=== PATIENT | male | born 1945 | race Caucasian/White ===

== ENCOUNTER → 2018-02-03 | Outpatient (CLI) | payer OTHER ==
[~2018-02-03] MED LIST: AMLO5TAB2 PO; ASPI1CHW4 CHEW; COEN400C PO; COMMODE 3-IN-11 MIS; GLUC500T4 PO; HYDR-3583 PO; LOSA50TA PO; SIMV40TA PO; WALKER WHEELS/F1 MIS; Z.0.NO CURRENT MEDS
== END ==
LOC: CPRE 11:17
PROVIDERS: ATTEND Orthopaedic Surgery Orthopaedic Trauma
DX: M16.11 Unilateral primary osteoarthritis, right hip (principal)

== ENCOUNTER 2018-02-09 05:38 | Inpatient (IN) | payer OTHER, MEDICARE ==
[~2018-02-09] VITALS: Ht 188 cm; Wt 101.0 kg
[~2018-02-09 05:38] MED LIST changes: -ASPI1CHW4 CHEW; -COMMODE 3-IN-11 MIS; -HYDR-3583 PO; -WALKER WHEELS/F1 MIS; -Z.0.NO CURRENT MEDS
[2018-02-09] MEDS ORDERED: ACETAMINOPHEN 1000 MG/100 ML 0 ML IV ONE (05:57)
[2018-02-09] MEDS ORDERED: POVIDONE IODINE 5% (ANTISEPSIS KIT) 4 APPLICATIONS EACH NARE PRN (06:00)
[2018-02-09] MEDS ORDERED: SODIUM CHLORID 0.9% 500 ML IV PRN (06:00)
[2018-02-09] MEDS ORDERED: CHLORHEXIDINE GLUCONATE 4% SOLN 120 ML BTL TOPICAL SCH (06:00)
[2018-02-09] MEDS ORDERED: VANCOMYCIN 1 GM/200 ML PREMIX IV SCH (06:00)
[2018-02-09] MEDS ORDERED: CHLORHEXIDINE GLUCONATE 2 % 1 PACK (2 CLOTHS) TOPICAL PRN (06:00)
[2018-02-09] MEDS ORDERED: BUPIVACAINE-EPI PF 0.25% INJ 20 ML, BUPIVACAINE LIPOSO PF 1.3% INJ 20 ML in SODIUM CHLO... P-ARTICULR SCH (06:00)
[2018-02-09] MEDS ORDERED: ceFAZolin 2 GM PREMIX 50 ML IV SCH (06:00)
[2018-02-09] MEDS ORDERED: TRANEXAMIC ACID IV SCH (06:00)
[2018-02-09] MEDS ORDERED: INSULIN HUMAN REGULAR 1,000 UNITS/10 ML VIAL SQ PRN (06:00)
[2018-02-09] MEDS ORDERED: CELECOXIB 200 MG CAP PO ONE (06:00)
[2018-02-09] MEDS ORDERED: GABAPENTIN 300 MG CAP PO ONE (06:00)
[2018-02-09] MEDS ORDERED: ACETAMINOPHEN 1000 MG/100 ML 100 ML IV ONE (06:00)
[2018-02-09] MEDS ORDERED: SODIUM CHLORIDE 0.9% IV SCH (06:00)
[2018-02-09] MEDS ORDERED: LACTATED RINGER'S 1000 ML IV PRN (06:00)
[2018-02-09] MEDS ORDERED: ONDANSETRON HCL 4 MG/2 ML VIAL IV PUSH ONE (06:00)
[2018-02-09] MEDS ORDERED: DEXAMETHASONE SOD PHOS 20 MG/5 ML VIAL IV PUSH ONE (06:00)
[2018-02-09] MEDS ORDERED: FAMOTIDINE 20 MG/2 ML VIAL IV PUSH ONE (06:00)
[2018-02-09] MEDS ORDERED: METOPROLOL TARTRATE 25 MG TAB PO PRN (06:00)
[2018-02-09] MEDS ORDERED: GENTAMICIN SULFATE 80 MG/2 ML VIAL ONE (06:17)
[2018-02-09] MEDS ORDERED: HYDR-3583 PO (07:46)
[2018-02-09] MEDS ORDERED: ASPI1CHW4 CHEW (07:46)
--- NOTE | 2018-02-09 08:57 | PD.OP ---
cc: Justin Chen MD Operative Report Date of Surgery: February 09, 2018 Preoperative Diagnosis: Severe right hip osteoarthritis Postoperative Diagnosis: Procedure: Right total hip arthroplasty by anterior approach Anesthesia: General Surgeon: Justin Chen Leather Staker(s): HERNANDEZ Montero PA-C The surgical procedure was assisted by my physician assistant brand manager. My P.A. presence was necessary throughout this case for the manipulation and positioning of the surgical extremity. My P.A. was assisting me throughout the duration of this procedure. The skill set of a physician assistant brand manager was medically necessary to complete this procedure. During the surgical case the operating room surgical technologist was working at the back table and the physician assistant brand manager was directly assisting me. Operation and Findings: PLAN OF ACTIVITY Weight bear as tolerated. IMPLANTS USED OsComp Systemsuy Corail size 15 collared stem with a size [54] Spicewood Gription cup, [54/ 36] Altrx poly liner, and a [36 +5] ceramic Biolox ceramic head. DETAILS OF PROCEDURE: This patient has a long history of hip pain. Patient was found to have severe osteoarthritis. The patient had radiographic evidence of joint space narrowing with [id number] arthritis and osteophytes around the acetabulum as well as the femoral head. There was also some cystic changes. The patient failed conservative treatment with pain medications, anti-inflammatories, physical therapy, assistive devices including a cane, as well as therapeutic injection of the hip. Patient's hip arthritis was limiting his ability to ambulate and perform activities of daily living. The patient wished to proceed with surgery and informed consent was obtained. Operative site was marked. I discussed both posterior approach and anterior approach with the patient and decision was made for anterior approach. Patient was brought to OR and placed on OR table. IV sedation and general anesthesia was administered by anesthesiologist. Patient positioned on a Jade table and was given IV antibiotics. Time-out procedure was performed. The hip and thigh were prepped with alcohol followed by Hibiclens. The thigh was draped in the usual sterile fashion. Clean Air Suite was used for this procedure. The procedure began with a 5-inch incision over the anterolateral thigh. Subcutaneous tissue was dissected with Bovie. The fascia over the tensa fasciae latae was incised. Care was taken to avoid injury to the lateral femoral cutaneous nerve. The tensor muscle was retracted laterally. Sartorius was retracted medially. Retractors were now placed. The reflected head of the rectus is now elevated. A capsulotomy was performed over the anterior head capsule. Sutures were placed to help retract the capsule. At this point the femoral head and neck were identified. With soft tissue protected, oscillating saw was used to make a cut through the femoral neck, the femoral head was now removed. At this point attention was turned to preparation of the acetabulum. The labrum was excised. The acetabulum was sequentially reamed up to size [54]. A Spicewood cup was now placed. Fluoroscopy was used to aid in identification of appropriate version. Cup was fully impacted and found to have excellent fit. Hole eliminator was now placed. The liner was now impacted into the cup. At this point the hip was externally rotated. A hook was placed around the proximal femur. The capsule was released off the lateral and medial femur. The hip was now extended and adducted. Retractors were placed around the proximal femur to allow for exposure. A box osteotome was used to remove the lateral cortex of the femoral neck. A broach was used to help lateralize the prosthesis. Canal finder was used to create a path down the canal. Next, the canal was sequentially broached up to size [15]. This was found to be an excellent fit. Calcar planer was placed. A standard head was placed, and the hip was reduced. The hip was found to have excellent stability with good range of motion. The leg lengths were measured under fluoroscopy and found to be equal compared to preoperatively. Trial broach was removed. The Corail stem was opened. Stem was fully impacted into the proximal femur in appropriate version. The femoral head was placed. The hip was again reduced. Fluoroscopy confirmed excellent alignment of prosthesis. The wound was thoroughly irrigated and capsule was closed with #1 Vicryl. The fascia over the tensor fasciae muscle was closed with #1 Vicryl, subcutaneous tissue was closed with 3-0 Vicryl and the skin was closed with julio and Dermabond skin closure. The capsule layers, muscle, and subcutaneous tissue were injected with a mixture of saline and bupivicaine. Dressings were applied. The patient was transferred to Recovery Room in stable condition. Justin Chen MD February 09, 2018 08:57
[2018-02-09] MEDS: LOSARTAN 50 MG TAB PO SCH (09:00)
[2018-02-09] MEDS ORDERED: NALOXONE HCL 0.4 MG/ML AMP IV PUSH PRN (09:00)
[2018-02-09] MEDS ORDERED: Post-op Orders (for Pharmacy) XX ONE (09:00)
[2018-02-09] MEDS ORDERED: ONDANSETRON HCL 4 MG/2 ML VIAL IVP PRN (09:00)
[2018-02-09] MEDS ORDERED: MORPHINE SULFATE 4 MG/ML INJ IV PUSH PRN (09:00)
[2018-02-09] MEDS: LACTATED RINGER'S 1000 ML INJ 1,000 ML IV SCH ×2 (09:25→21:30)
[2018-02-09] MEDS ORDERED: DO NOT ADM ANY ANTICOAGULANT DRUGS PRN (09:25)
[2018-02-09] MEDS ORDERED: MIDAZOLAM HCL 2 MG/2 ML VIAL ONE (09:30)
[2018-02-09] MEDS: amLODIPine BESYLATE 5 MG TAB PO SCH (09:56)
[2018-02-09] MEDS ORDERED: TRANEXAMIC ACID INJ 1,000 MG in SODIUM CHLORIDE 0.9% INJ 100 ML IV SCH (10:00)
--- NOTE | 2018-02-09 10:14 | RADRPT ---
EXAM DATE/TIME: 02/09/2018 10:45 [facility] COMPARISON: No previous studies available for comparison. INDICATIONS : Post op, right hip replacement. MEDICAL HISTORY : None. SURGICAL HISTORY : None. ENCOUNTER: Initial ACUITY: 1 day PAIN SCORE: 0/10 LOCATION: Right hip FINDINGS: AP and crosstable lateral views of the right hip demonstrate right hip arthroplasty in place. Hardwar e is well-positioned with anatomic alignment. There is no acute fracture. Degenerative changes are no arben in the left hip. CONCLUSION: 1. Status post right hip arthroplasty. Arthroplasty components are well positioned without fracture. Buster Mcmahan MD on February 09, 2018 at 10:11 Board Certified Radiologist. This report was verified electronically.
[2018-02-09] MEDS ORDERED: KETOROLAC TROMETHAMINE 30 MG/ML (IVP) VIAL IV PUSH SCH (10:30)
[2018-02-09] MEDS: ASPIRIN 81 MG CHEW TAB CHEW SCH ×2 (10:37→22:01)
[2018-02-09] MEDS: ceFAZolin 2 GM PREMIX 50 ML IV SCH ×2 (12:06→18:45)
[2018-02-09 13:15] VITALS: BP 132/75; PULSE 95; RESP 18; TEMP 97.8; O2SAT 94
--- NOTE | 2018-02-09 13:20 | RADRPT ---
EXAM DATE/TIME: 02/09/2018 07:19 [facility] COMPARISON: No previous studies available for comparison. INDICATIONS : Right total hip replacement. MEDICAL HISTORY : None. SURGICAL HISTORY : None. ENCOUNTER: Initial ACUITY: 1 day PAIN SCORE: Non-responsive. LOCATION: Right Hip FINDINGS: 2 views recorded digitally in the operating room using C-arm during placement of total hip arthroplas ty. CONCLUSION: Intraoperative images. Eric Bernard MD on February 09, 2018 at 13:17 Board Certified Radiologist. This report was verified electronically.
[2018-02-09] MEDS ORDERED: ePHEDrine/NS 25 MG/5 ML SYRINGE IV ONE (13:43)
[2018-02-09] MEDS ORDERED: LIDOCAINE HCL 1% PF 5 ML SYRINGE OTHER ONE (13:43)
[2018-02-09] MEDS ORDERED: LACTATED RINGER'S 1000 ML INJ 1,000 ML IV ONE (13:43)
[2018-02-09] MEDS ORDERED: ROCURONIUM INJ 50 MG/5 ML SYRINGE IV PUSH ONE (13:43)
[2018-02-09] MEDS ORDERED: PHENYLEPH/NS 1000 MCG/10 ML SYR IV ONE (13:43)
[2018-02-09] MEDS ORDERED: PROPOFOL 200 MG/20 ML AMP IV ONE (13:43)
[2018-02-09] MEDS ORDERED: NEOSTIGMINE 5 MG/5 ML SYRINGE IV PUSH ONE (13:43)
[2018-02-09] MEDS ORDERED: GLYCOPYRROLATE 1 MG/5 ML SYRINGE IV PUSH ONE (13:43)
[2018-02-09] MEDS: ACETAMINOPHEN/HYDROcodone 325 MG/7.5 MG TAB PO PRN ×2 (14:20→18:05)
[2018-02-09] MEDS: ACETAMINOPHEN 1000 MG/100 ML 100 ML IV SCH (18:08)
[2018-02-09] MEDS: VANCOMYCIN INJ 1,000 MG in SODIUM CHLOR 0.9% 250 ML INJ 250 ML IV SCH (19:14)
[2018-02-09 20:05] VITALS: BP 131/63; PULSE 67; RESP 16; TEMP 99; O2SAT 94
[2018-02-09] MEDS: PRAVASTATIN SOD 80 MG TAB PO SCH (21:00)
[2018-02-09] MEDS: CELECOXIB 200 MG CAP PO SCH (22:02)
[2018-02-10] MEDS: ceFAZolin 2 GM PREMIX 50 ML IV SCH
[2018-02-10 00:15] VITALS: BP 160/79; PULSE 74; RESP 17; TEMP 97.4; O2SAT 96
[2018-02-10] MEDS: ACETAMINOPHEN/HYDROcodone 325 MG/10 MG TAB PO PRN ×2 (01:35→21:47)
[2018-02-10 04:01] LABS: HEMOGLOBIN 11.5 GM/DL (13.0-17.0)
[2018-02-10 04:40] VITALS: BP 147/71; PULSE 61; RESP 17; TEMP 98.3; O2SAT 97
[2018-02-10] MEDS: ACETAMINOPHEN 1000 MG/100 ML 100 ML IV SCH ×2 (06:00→18:00)
[2018-02-10] MEDS ORDERED: WALKER WHEELS/F1 MIS (06:20)
--- NOTE | 2018-02-10 07:01 | PD.ORT.PN ---
Subjective Subjective Remarks Doing well status post right total hip arthroplasty POD 1 Objective Vitals Vital Signs Date Time Temp Pulse Resp B/P (MAP) Pulse Ox O2 Delivery O2 Flow Rate FiO2 02/10/18 00:15 97.4 74 17 160/79 (106) 96 02/09/18 20:05 99.0 67 16 131/63 (85) 94 02/09/18 13:15 97.8 95 18 132/75 (94) 94 02/09/18 13:00 93 15 129/71 (90) 94 Room Air 02/09/18 12:00 92 15 133/63 (86) 94 Room Air 02/09/18 11:00 88 16 137/68 (91) 94 Room Air 02/09/18 10:30 97.5 84 16 130/72 (91) 93 Room Air 02/09/18 10:15 77 16 121/65 (83) 98 Nasal Cannula 2 02/09/18 10:00 65 16 122/64 (83) 95 Nasal Cannula 2 02/09/18 09:45 71 16 123/60 (81) 95 Nasal Cannula 3 02/09/18 09:30 80 18 128/61 (83) 94 Nasal Cannula 3 02/09/18 09:20 98.7 72 20 126/64 (84) 94 Nasal Cannula 3 I/O 02/09/18 02/09/18 02/09/18 02/10/18 02/10/18 02/10/18 07:00 15:00 23:00 07:00 15:00 23:00 Intake Total 1300 ml 150 ml Output Total 150 ml Balance 1150 ml 150 ml Intake IV Total 150 ml Other 1300 ml Output Estimated Blood Loss 150 ml Result Diagram: 02/10/18 0333 Imaging Last 24 hours Impressions Hip and Pelvis X-Ray 02/09/18 0852 Signed Impressions: Service Date/Time: February 10:45 - CONCLUSION: 1. Status post right hip arthroplasty. Arthroplasty components are well positioned without fracture. Buster Mcmahan MD Objective Remarks Right lower extremity: Clean dry dressings intact with a few pinpoint drops of drainage. He has mild swelling. He has no pain with knee or ankle range of motion. Distally his neurovascular intact with active dorsiflexion and plantarflexion of foot. He has good capillary refills and distal pulses. He is able stand and bear full weight. Assessment & Plan Assessment and Plan Right total hip arthroplasty POD 1 Weightbearing as tolerated right lower extremity with physical therapy twice daily Patient's bedroom is up a flight of stairs. Work with physical therapy for gait training and also climbing stairs. Maintain dressing Incentive spirometry Lovenox Plan for discharge tomorrow Case management for DME for walker Home health care with 's choice Follow-up with Dr. Grimes or PA in 2 weeks Elier Arenas Jr. February 10, 2018 07:01
[2018-02-10 08:00] VITALS: BP 173/77; PULSE 65; RESP 16; TEMP 97.9; O2SAT 97
[2018-02-10] MEDS: VANCOMYCIN INJ 1,000 MG in SODIUM CHLOR 0.9% 250 ML INJ 250 ML IV SCH (08:00)
[2018-02-10] MEDS: LOSARTAN 50 MG TAB PO SCH (08:26)
[2018-02-10] MEDS: CELECOXIB 200 MG CAP PO SCH ×2 (08:26→21:21)
[2018-02-10] MEDS: amLODIPine BESYLATE 5 MG TAB PO SCH (08:26)
[2018-02-10] MEDS: ASPIRIN 81 MG CHEW TAB CHEW SCH ×2 (08:27→21:20)
[2018-02-10] MEDS: LACTATED RINGER'S 1000 ML INJ 1,000 ML IV SCH ×2 (10:00→21:21)
[2018-02-10] MEDS: ACETAMINOPHEN/HYDROcodone 325 MG/7.5 MG TAB PO PRN (10:10)
[2018-02-10 12:00] VITALS: BP 178/63; PULSE 81; RESP 16; TEMP 97.9; O2SAT 97
--- NOTE | 2018-02-10 15:53 | HHI.FF ---
Face to Face Verification Diagnosis: (1) Status post right hip replacement Physical Therapy Gait training Hip: Total hip, Protocol: Right, Progress to weight bearing Nursing Dressing Changes: Do not change dressing (x 6 days), Daily dressing change ( beginning on POD 7 with primapore. do not remove clear mesh on incision) I have seen patient Berry Li on 02/10/18. My clinical findings support the need for the requested home health care services because: Ltd mobility - disease progression I certify that my clinical findings support that this patient is homebound because: Post-op weakness Sebastian Ryan/Field Insurance Sales Manager JONH February 10, 2018 15:53
[2018-02-10 16:00] VITALS: BP 145/67; PULSE 82; RESP 16; TEMP 98; O2SAT 98
[2018-02-10 20:00] VITALS: BP 156/76; PULSE 79; RESP 20; TEMP 98.3; O2SAT 96
[2018-02-10] MEDS: PRAVASTATIN SOD 80 MG TAB PO SCH (21:00)
[2018-02-10] MEDS: DOCUSATE SODIUM 100 MG CAP PO SCH (21:21)
[2018-02-11] VITALS: BP_SYST 107; BP_SYST 154; BP_DIAS 58; BP_DIAS 67; PULSE 78; PULSE 87; RESP 18; RESP 20; TEMP 97.5; TEMP 97.6; O2SAT 93; O2SAT 98
[2018-02-11] MEDS: ACETAMINOPHEN/HYDROcodone 325 MG/10 MG TAB PO PRN ×2 (06:15→09:29)
[2018-02-11] MEDS: ACETAMINOPHEN 1000 MG/100 ML 100 ML IV SCH (06:15)
[2018-02-11 08:00] VITALS: BP 150/76; PULSE 86; RESP 16; TEMP 98.6; O2SAT 94
--- NOTE | 2018-02-11 09:15 | PD.ORT.PN ---
Subjective Subjective Remarks Doing well status post right total hip arthroplasty POD 2 Objective Vitals Vital Signs Date Time Temp Pulse Resp B/P (MAP) Pulse Ox O2 Delivery O2 Flow Rate FiO2 02/11/18 00:00 97.5 87 20 154/67 (96) 93 02/10/18 20:00 98.3 79 20 156/76 (102) 96 02/10/18 18:46 17 02/10/18 16:00 98.0 82 16 145/67 (93) 98 02/10/18 12:00 97.9 81 16 178/63 (101) 97 02/10/18 11:10 17 I/O 02/10/18 02/10/18 02/10/18 02/11/18 02/11/18 02/11/18 07:00 15:00 23:00 07:00 15:00 23:00 Intake Total 480 ml 700 ml 240 ml Output Total 400 ml Balance 480 ml 700 ml -160 ml Intake Oral 480 ml 700 ml 240 ml Output Urine Total 400 ml # Voids 3 4 1 # Bowel Movements 0 0 Result Diagram: 02/10/18 0333 Imaging Last 24 hours Impressions Hip and Pelvis X-Ray 02/09/18 0852 Signed Impressions: Service Date/Time: February 10:45 - CONCLUSION: 1. Status post right hip arthroplasty. Arthroplasty components are well positioned without fracture. Buster Mcmahan MD Objective Remarks Right lower extremity: Clean dry dressings intact with a few pinpoint drops of drainage. He has mild swelling. He has no pain with knee or ankle range of motion. Distally his neurovascular intact with active dorsiflexion and plantarflexion of foot. He has good capillary refills and distal pulses. He is able stand and bear full weight. Assessment & Plan Assessment and Plan Right total hip arthroplasty POD 2 Weightbearing as tolerated right lower extremity with physical therapy twice daily Patient's bedroom is up a flight of stairs. Work with physical therapy for gait training and also climbing stairs. Maintain dressing Incentive spirometry Lovenox Plan for discharge tomorrow. Still needs more training with stairs and getting out of bed Case management for DME for walker Home health care with 's choice Follow-up with Dr. Grimes or PA in 2 weeks Elier Arenas Jr. February 11, 2018 09:15
[2018-02-11] MEDS: DOCUSATE SODIUM 100 MG CAP PO SCH ×2 (09:26→21:52)
[2018-02-11] MEDS: CELECOXIB 200 MG CAP PO SCH ×2 (09:26→21:52)
[2018-02-11] MEDS: amLODIPine BESYLATE 5 MG TAB PO SCH (09:26)
[2018-02-11] MEDS: LOSARTAN 50 MG TAB PO SCH (09:27)
[2018-02-11] MEDS: ASPIRIN 81 MG CHEW TAB CHEW SCH ×2 (09:27→21:52)
[2018-02-11] MEDS: LACTATED RINGER'S 1000 ML INJ 1,000 ML IV SCH ×2 (10:34→23:30)
[2018-02-11 12:00] VITALS: BP 146/67; PULSE 79; RESP 16; TEMP 97.5; O2SAT 97
[2018-02-11] MEDS: ACETAMINOPHEN/HYDROcodone 325 MG/5 MG TAB PO PRN ×3 (13:49→21:52)
[2018-02-11 16:00] VITALS: BP 132/67; PULSE 73; RESP 16; TEMP 97.5; O2SAT 98
[2018-02-11 20:00] VITALS: BP 115/66; PULSE 74; RESP 17; TEMP 97.3; O2SAT 96
[2018-02-11] MEDS: PRAVASTATIN SOD 80 MG TAB PO SCH (21:51)
[2018-02-12] VITALS: BP 145/78; PULSE 76; RESP 17; TEMP 98.2; O2SAT 95
[2018-02-12 04:00] VITALS: BP 135/72; PULSE 74; RESP 17; TEMP 98.7; O2SAT 97
[2018-02-12] MEDS ORDERED: COMMODE 3-IN-11 MIS (07:08)
[2018-02-12 08:00] VITALS: BP_SYST 120; BP_SYST 178; BP_DIAS 78; BP_DIAS 81; PULSE 85; PULSE 93; RESP 16; TEMP 98.3; TEMP 98.5; O2SAT 100; O2SAT 94
[2018-02-12] MEDS: DOCUSATE SODIUM 100 MG CAP PO SCH (08:07)
[2018-02-12] MEDS: LOSARTAN 50 MG TAB PO SCH (08:07)
[2018-02-12] MEDS: amLODIPine BESYLATE 5 MG TAB PO SCH (08:07)
[2018-02-12] MEDS: CELECOXIB 200 MG CAP PO SCH (08:08)
[2018-02-12] MEDS: ASPIRIN 81 MG CHEW TAB CHEW SCH (08:09)
[2018-02-12] MEDS: ACETAMINOPHEN/HYDROcodone 325 MG/7.5 MG TAB PO PRN ×2 (08:15→13:12)
[2018-02-12] MEDS: LACTATED RINGER'S 1000 ML INJ 1,000 ML IV SCH (11:14)
--- NOTE | 2018-02-12 11:45 | HHI.DS ---
Discharge Summary Admission Date February 09, 2018 at 05:38 Discharge Date: February 12, 2018 Admitting Diagnosis Right hip osteoarthritis Diagnosis: (1) Status post right hip replacement Diagnosis: Principal ICD Codes: Z96.641 - Presence of right artificial hip joint Procedures Right anterior total hip arthroplasty CBC/BMP: 02/10/18 0333 Significant Findings Laboratory Tests Test 02/10/18 03:33 Hemoglobin 11.5 GM/DL (13.0-17.0) Hematocrit 33.0 % (39.0-51.0) PE at Discharge Right lower extremity: Clean dry dressings intact with a few pinpoint drops of drainage. He has mild swelling. He has no pain with knee or ankle range of motion. Distally his neurovascular intact with active dorsiflexion and plantarflexion of foot. He has good capillary refills and distal pulses. He is able stand and bear full weight. Hospital Course Patient admitted from outpatient basis for elective right total hip arthroplasty. He had been battling right hip pain for multiple years. He exhausted conservative measures of treatment which included anti-inflammatory medications, intra-articular steroid injections, and activity modification. The decision was made to move forward with elective right total hip arthroplasty. He tolerated the procedure well. He was admitted to [facility]. He was out of bed on postop day 1 and ambulatory with a walker. By postop day 3 he is hemodynamically stable, pain was well controlled, and he was fit for discharge home with home health care. He will remain fully weightbearing. He will follow-up with Dr. Grimes on 2 weeks Pt Condition on Discharge: Good Discharge Disposition: Disch w/ Home Health Serv Discharge Instructions Diet Instructions: As Tolerated, No Restrictions Activities You Can Perform: Weight Bearing as [place] Follow up Referrals: Appointment for Follow Up @ [facility] with [facility]/ with [facility] - [phone] New Medications: Aspirin (Aspirin 81 Low Dose) 81 Mg Chew 81 MG CHEW BID for blood clot prevention, #60 TAB Commode 3-in-1 (Commode 3-in-1) 1 Mis Mis EA .XX DIRECTED, #1 0 Refills Hydrocodone-Acetaminophen (Hydrocodone-Acetaminophen) 10-325 mg Tab 1 TAB PO Q4H PRN for PAIN, #60 TAB 0 Refills Walker with Front Wheels (Walker with Front Wheels) 1 Mis Mis EA .XX DIRECTED, #1 0 Refills Continued Medications: Amlodipine (Amlodipine) 5 Mg Tab 5 MG PO DAILY for Blood Pressure Management, #30 TAB 0 Refills Coenzyme Q10 (Ubidecarenone) (Coq-10) 400 Mg Cap 1 CAP PO DAILY Glucosamine-Chondroitin (Glucosamine-Chondroitin) 500-400 Mg Tab 1 TAB PO DAILY for Herbal Supplements, TAB 0 Refills Losartan (Losartan) 50 Mg Tab 50 MG PO DAILY for Blood Pressure Management, #30 TAB 0 Refills Simvastatin (Simvastatin) 40 Mg Tab 40 MG PO HS for Cholesterol Management, #30 TAB 0 Refills Sebastian Ryan/First Gael BORJA February 12, 2018 11:45
== END 2018-02-12 13:44 | disposition home health service (06) | DRG 470 ==
LOC: HSDI 05:38 → N06B 13:35
PROVIDERS: ADMIT Orthopaedic Surgery Orthopaedic Trauma; ATTEND Orthopaedic Surgery Orthopaedic Trauma
PROC: 0SR904A Replacement of Right Hip Joint with Ceramic on Polyethylene Synthetic Substitute, Uncemented, Open Approach (ICD-10-PCS; principal; 2018-02-09 06:48)
DX: M16.11 Unilateral primary osteoarthritis, right hip (principal); I10 Essential (primary) hypertension; E78.5 Hyperlipidemia, unspecified
CPT/HCPCS: 73501; 73502; 76000; 85014; 85018; 86850; 86900; 86901; C1776; C9290; J0131; J0690; J1100; J1580; J1885; J2250; J2370; J2405; J2710; J3010; J3370; J7050; J7120